=== PATIENT | male | born 1945 | race Caucasian/White ===

== ENCOUNTER 2022-02-12 14:11 | Emergency (ER) | payer MEDICARE, OTHER ==
[~2022-02-12] VITALS: Ht 177.8 cm; Wt 80.7 kg
[~2022-02-12 14:11] MED LIST: DAILY MULTIPLE1 EACH; NAPR220; OMEP20ER
== END 2022-02-12 16:35 | disposition home or self-care (01) ==
LOC: ER 14:11
DX: S01.412A Laceration without foreign body of left cheek and temporomandibular area, initial encounter (principal); Z23 Encounter for immunization; W20.8XXA Other cause of strike by thrown, projected or falling object, initial encounter; Y92.9 Unspecified place or not applicable
CPT/HCPCS: 70150; 90714